=== PATIENT | female | born 1995 | race Caucasian/White ===

== ENCOUNTER 2017-02-13 22:49 | Emergency (ER) | payer OTHER ==
[~2017-02-13] VITALS: Ht 157.4 cm; Wt 52.2 kg
[~2017-02-13 22:49] MED LIST: XANAX0.25 MG PO
== END 2017-02-13 23:40 | disposition home or self-care (01) ==
LOC: ED 22:49
DX: H60.502 Unspecified acute noninfective otitis externa, left ear (principal)